=== PATIENT | male | born 1980 | race African-American/Black ===

== ENCOUNTER 2025-02-06 13:53 | Emergency (ER) | payer SELFPAY ==
[2025-02-06 14:46] LABS: APPEARANCE,URINE CLEAR (Clear); GLUCOSE,URINE NEGATIVE (Negative); OCCULT BLOOD,URINE NEGATIVE (Negative)
[2025-02-06 14:56] LABS: BUPRENORPHINE SCREEN,URINE NEGATIVE (CUTOFF=10); EPITHELIAL CELLS,URINE 0-5 /hpf (0-5); METHADONE SCREEN, URINE NEGATIVE (CUT0FF=200); METHAMPHETAMINES SCREEN, URINE NEGATIVE (CUTOFF=500); OXYCODONE SCREEN,URINE NEGATIVE (CUT0FF=100); THC SCREEN,URINE 20 NG/ML NEGATIVE (CUTOFF=50)
[2025-02-06] MEDS: Ketorolac 60 MG/2 ML SDV IM ONE (14:57)
[2025-02-06 14:58] LABS: AMPHETAMINES SCREEN, URINE NEGATIVE (CUTOFF=500)
== END 2025-02-06 18:02 | disposition home or self-care (01) ==
LOC: JD.ED 13:53
DX: M62.830 Muscle spasm of back (principal); Z79.899 Other long term (current) drug therapy
CPT/HCPCS: 74176; 74176-26; 80306; 81001; 96372; 99284; A9270-GY; J1885